=== PATIENT | female | born 1965 | race Caucasian/White ===

== ENCOUNTER → 2019-12-23 13:00 | Outpatient (BNVA) | payer SELFPAY | PROVIDERS: PCP Internal Medicine; Visit Provider Internal Medicine Cardiovascular Disease | DX: R00.2 Palpitations (principal); R07.2 Precordial pain | CPT/HCPCS: 93005; 99202 ==

== ENCOUNTER → 2020-01-05 14:53 | Outpatient (REF) | payer BC, SELFPAY ==
--- NOTE | 2020-01-05 14:58 | CA_ITS ---
Transthoracic Echocardiogram Patient (Last, First, Middle): Machelle Antunez L Gender: Female Date of : 1965 Age: 54 Procedure Date: 01/05/2020 Procedure Type: Transthoracic Echocardiogram Location: OP Height: 162.56 cm Weight: 68.04 kg BSA: 1.73 m2 Heart Rate: bpm BP: 122 / 60 mmHg Dance Artist: Referring MD: Dain Michel MD Symptoms: R00.2 - Palpitations Study Quality: Good ECG Rhythm: Sinus Conclusions: - Normal study Findings Left Ventricle Normal left ventricular size, thickness, and systolic function. The visually estimated ejection fraction is between 60-65%. Diastolic function is normal for age. Right Ventricle Normal right ventricular cavity size and systolic function. Atria Both atria are normal in size. There is no evidence of interatrial shunt. Aortic Valve Normal aortic valve structure and function. There is no aortic valve stenosis. There is no aortic valve regurgitation. Mitral Valve Normal mitral valve structure and function. There is trace mitral valve regurgitation. There is no mitral valve stenosis. Pulmonic Valve The pulmonic valve is likely normal. Tricuspid Valve Normal tricuspid valve structure. There is trace tricuspid valve regurgitation. The right ventricular systolic pressure is normal. The right ventricular systolic pressure is 23 mmHg. Normal right atrial pressure. There is no evidence of pulmonary hypertension. Great Vessels All visible segments of the aorta are normal in size. The pulmonary artery was not well visualized. Venous The inferior vena cava is normal in size. Inferior vena cava flow is normal. Pericardium/Pleural There is no evidence of pericardial effusion. Prior Study Comparison No prior study available for comparison. Measurements 2D Linear Measurements IVSd: 1.00 0.6-0.9/0.6-1.0 cm LVIDd: 4.36 3.9-5.3/4.2-5.9 cm LVIDd Index: 2.52 2.4-3.2/2.2-3.1 cm/m2 LVIDs: 2.47 2.0-3.6 cm LVPWd: 0.91 0.7-1.1 cm Ao Root: 3.10 2.1-3.5 cm LA Diam: 3.30 2.7-3.8/3.0-4.0 cm LAIDs Index: 1.91 1.5-2.3 cm/m2 LV Mass: 169.54 67-162/88-224 g LV Mass Index: 98.00 43-95/49-115 g/m2 LVOT Diam: 2.00 3.0+(-)1.3 cm Mitral Valve MV Pk E: 0.88 MV PK A: 0.59 MV Decel Time: 169.00 E/A: 1.50 E'Lateral: 12.90 E'Medial: 12.70 E/E' Med: 7.00 E/E' Lat: 6.80 PHT: 50.00 MVA PHT: 4.40 Decel Sibley: 5.22 Aortic Valve AoV Pk Robb: 1.58 AoV Mn Robb: 0.99 AoV VTI: 0.36 AoV Pk Grad: 10.00 Aov Mn Grad: 5.00 OLEKSANDR Cont.VTI: 1.97 LVOT LVOT Pk Robb: 1.06 LVOT Mn Robb: 0.61 LVOT VTI: 0.23 LVOT Pk Grad: 4.00 LVOT Mn Grad: 2.00 LVOT Diam: 2.00 LVOT Area: 3.14 Diastolic Function MV Pk E: 0.88 MV Pk A: 0.59 E/A: 1.50 E'Medial: 12.70 E/E' Med: 7.00 E' Laterial: 12.90 E/E' Lat: 6.80 Tricuspid Valve TR Pk Robb: 2.25 TR Pk Grad: 20.00 RA Press: 3.00 RVSP: 23.00 Great Vessels Aorta Ao Root-2D: 3.10 2.0-3.7 cm Pulmonary Valve PV Pk Robb: 0.88 Peak PV Grad: 3.00 Updated in Other Vendor System with Status of Final Milton Zarate MD electronically signed on 01/06/2020 10:13:06 AM with status of Final
== END ==
LOC: HO.CARD 14:53
PROVIDERS: Visit Provider Internal Medicine Cardiovascular Disease
DX: R00.2 Palpitations (principal)
CPT/HCPCS: 93306

== ENCOUNTER → 2020-03-21 14:40 | Outpatient (BNVA) | payer BC, SELFPAY | PROVIDERS: PCP Internal Medicine; Visit Provider Internal Medicine Cardiovascular Disease ==

== ENCOUNTER 2020-11-14 10:23 | Outpatient (REF) | payer BC, SELFPAY ==
[2020-11-14 10:28] LABS: MANUAL DIFF FLAG NO
[2020-11-14 11:52] LABS: Basophils Absolute Auto 0.1 X10*3/uL (0.0-0.2); Eosinophils Absolute Auto 0.1 X10*3/uL (0.0-0.4); Eosinophils Percent Auto 1.9 % (0-4); Hematocrit 42.1 % (37-47); Hemoglobin 13.7 g/dl (12.0-16.0); Imm Gran Abs Auto 0.02 X10*3/uL (0.00-0.03); Imm Gran Pct Auto 0.4 % (0.0-0.4); Lymphocytes Absolute Auto 2.1 X10*3/uL (1.2-4.9); Lymphocytes Percent Auto 40.3 % (20-40); Mean Corpuscular HGB Conc 32.5 g/dl (31.0-35.0); Mean Platelet Volume 11.3 fL (9.4-12.3); Monocytes Absolute Auto 0.4 X10*3/uL (0.1-1.2); Neutrophils Absolute Auto 2.5 X10*3/uL (2.0-8.3); Neutrophils Percent Auto 49.4 % (45-73); Platelet Count 214 X10*3/uL (160-400); Red Blood Count 4.73 X10*6/uL (4.20-5.50); Red Cell Distribution Width 12.5 % (11.0-16.0); White Blood Count 5.1 X10*3/uL (4.8-10.8)
[2020-11-14 12:09] LABS: Appearance Urine HAZY; Color Urine YELLOW; Glucose Urine UA NEG (NEG); Leukocyte Esterase Urine NEG (NEG); Nitrite Urine NEG (NEG); Specific Gravity - Urine >= 1.030 (1.005-1.025); Urine Blood NEG (NEG); Urine Ketones NEG (NEG); Urine Protein NEG (NEG-TRACE)
[2020-11-14 12:47] LABS: Alanine Aminotransferase 33 U/L (0-31); Albumin Level 4.5 g/dL (3.5-5.0); Alkaline Phosphatase 86 U/L (39-117); Anion Gap 14 (12-20); Aspartate Amino Transferase 25 U/L (5-31); Bilirubin Total 0.7 mg/dL (0.0-1.0); Blood Urea Nitrogen 13 mg/dL (9-16); Calcium 9.3 mg/dL (8.4-10.2); Carbon Dioxide 24 mmol/L (22-29); Chloride 109 mmol/L (96-108); Cholesterol 234 mg/dL; Estimated Glomerular Filt Rate > 60; Glucose Fasting 95 mg/dL (60-99); HDL Cholesterol 76 mg/dL; LDL Cholesterol Calculated 132 mg/dl; Sodium 143 mmol/L (135-145); Triglycerides 133 mg/dL
== END 2020-11-14 10:24 | disposition home or self-care (01) ==
LOC: HO.LNP 10:23
PROVIDERS: Visit Provider Internal Medicine
DX: Z00.00 Encounter for general adult medical examination without abnormal findings (principal); D64.9 Anemia, unspecified; R73.01 Impaired fasting glucose
CPT/HCPCS: 80053; 80061; 81003; 85025

== ENCOUNTER 2021-11-16 13:14 | Outpatient (REF) | payer BC, SELFPAY ==
[2021-11-16 13:17] LABS: MANUAL DIFF FLAG NO
[2021-11-16 13:33] LABS: Basophils Percent Auto 0.8 % (0-2); Eosinophils Absolute Auto 0.1 X10*3/uL (0.0-0.4); Eosinophils Percent Auto 1.6 % (0-4); Hematocrit 41.1 % (37.0-47.0); Hemoglobin 13.3 g/dl (12.0-16.0); Lymphocytes Percent Auto 38.7 % (20-40); Mean Corpuscular HGB Conc 32.4 g/dl (31.0-35.0); Mean Corpuscular Hemoglobin 28.3 pg (27.0-33.0); Mean Corpuscular Volume 87.4 fL (80.0-98.0); Mean Platelet Volume 11.2 fL (9.4-12.3); Monocytes Absolute Auto 0.4 X10*3/uL (0.1-1.2); Neutrophils Absolute Auto 2.7 x10*3/uL (2.0-8.3); Neutrophils Percent Auto 51.9 % (45-73); Platelet Count 214 X10*3/uL (160-400); Red Cell Distribution Width 12.7 % (11.0-16.0); White Blood Count 5.1 X10*3/uL (4.8-10.8)
[2021-11-16 13:41] LABS: Alanine Aminotransferase 24 U/L (0-31); Albumin Level 4.5 g/dL (3.5-5.0); Alkaline Phosphatase 91 U/L (39-117); Anion Gap 15 (12-20); Appearance Urine Clear; Aspartate Amino Transferase 20 U/L (5-31); Bilirubin Total 0.7 mg/dL (0.0-1.0); Blood Urea Nitrogen 15 mg/dL (9-16); Calcium 9.2 mg/dL (8.4-10.2); Carbon Dioxide 24 mmol/L (22-29); Chloride 107 mmol/L (96-108); Cholesterol 194 mg/dL; Color Urine Yellow; Estimated Glomerular Filt Rate > 60; Glucose Fasting 95 mg/dL (60-99); Glucose Urine UA Negative (Negative); HDL Cholesterol 65 mg/dL; LDL Cholesterol Calculated 107 mg/dl; Leukocyte Esterase Urine Negative (Negative); Nitrite Urine Negative (Negative); PH 5.5 (5.0-9.0); Potassium 4.2 mmol/L (3.3-5.1); Sodium 142 mmol/L (135-145); Total Protein 7.2 g/dL (6.5-8.0); Triglycerides 110 mg/dL; Urine Blood Negative (Negative); Urine Ketones Negative (Negative); Urine Protein Negative (Neg-Trace)
[2021-11-16 13:43] LABS: Estimated Average Glucose 105 mg/dL; Hemoglobin A1c % 5.3 %
== END 2021-11-16 13:15 | disposition home or self-care (01) ==
LOC: HO.LNP 13:14
PROVIDERS: Visit Provider Internal Medicine
DX: Z00.00 Encounter for general adult medical examination without abnormal findings (principal); D64.9 Anemia, unspecified; R73.01 Impaired fasting glucose
CPT/HCPCS: 80053; 80061; 81003; 83036; 85025

== ENCOUNTER 2022-02-06 15:53 | Outpatient (REF) | payer BC, SELFPAY ==
[2022-02-06 16:07] LABS: Appearance Urine Clear; Color Urine Yellow; Glucose Urine UA Negative (Negative); Leukocyte Esterase Urine Trace (Negative); Nitrite Urine Negative (Negative); PH 6.5 (5.0-9.0); Specific Gravity - Urine 1.025 (1.005-1.025); UMIC TRIGGER UA YES; Urine Blood Negative (Negative); Urine Ketones Negative (Negative); Urine Protein Negative (Neg-Trace)
[2022-02-06 16:12] LABS: Bacteria Urine 1+ (None Seen); Hyaline Casts Urine 0-2 /LPF (0-2); RBC Urine 0-2 /HPF (0-2)
== END 2022-02-06 15:54 | disposition home or self-care (01) ==
LOC: HO.LNP 15:53
PROVIDERS: Visit Provider Internal Medicine
DX: N30.00 Acute cystitis without hematuria (principal)
CPT/HCPCS: 81001; 87086; 87088; 87186

== ENCOUNTER 2023-01-01 07:31 | Outpatient (REF) | payer BC, SELFPAY ==
[2023-01-01 07:49] LABS: MANUAL DIFF FLAG NO
[2023-01-01 08:26] LABS: Basophils Percent Auto 0.6 % (0-2); Eosinophils Absolute Auto 0.1 X10*3/uL (0.0-0.4); Eosinophils Percent Auto 2.1 % (0-4); Hematocrit 41.6 % (37.0-47.0); Hemoglobin 13.4 g/dl (12.0-16.0); Imm Gran Abs Auto 0.01 X10*3/uL (0.00-0.03); Imm Gran Pct Auto 0.2 % (0.0-0.4); Lymphocytes Absolute Auto 1.7 X10*3/uL (1.2-4.9); Lymphocytes Percent Auto 35.7 % (20-40); Mean Corpuscular HGB Conc 32.2 g/dl (31.0-35.0); Mean Corpuscular Hemoglobin 28.1 pg (27.0-33.0); Mean Corpuscular Volume 87.2 fL (80.0-98.0); Mean Platelet Volume 10.7 fL (9.4-12.3); Monocytes Absolute Auto 0.3 X10*3/uL (0.1-1.2); Neutrophils Absolute Auto 2.6 x10*3/uL (2.0-8.3); Neutrophils Percent Auto 54.4 % (45-73); Platelet Count 206 X10*3/uL (160-400); Red Blood Count 4.77 X10*6/uL (4.20-5.50); Red Cell Distribution Width 12.3 % (11.0-16.0); White Blood Count 4.7 X10*3/uL (4.8-10.8)
[2023-01-01 08:34] LABS: Estimated Average Glucose 103 mg/dL; Hemoglobin A1c % 5.2 % (<6.0)
[2023-01-01 08:51] LABS: Alanine Aminotransferase 26 U/L (0-31); Albumin Level 4.4 g/dL (3.5-5.0); Alkaline Phosphatase 82 U/L (39-117); Anion Gap 12 (12-20); Aspartate Amino Transferase 22 U/L (5-31); Bilirubin Total 0.6 mg/dL (0.0-1.0); Blood Urea Nitrogen 15 mg/dL (9-16); Calcium 9.1 mg/dL (8.4-10.2); Carbon Dioxide 27 mmol/L (22-29); Chloride 107 mmol/L (96-108); Cholesterol 196 mg/dL (<200); Estimated Glomerular Filt Rate > 60; Glucose Fasting 91 mg/dL (60-99); HDL Cholesterol 71 mg/dL (>40); LDL Cholesterol Calculated 106 mg/dL (<100); Sodium 142 mmol/L (135-145); Total Protein 7.3 g/dL (6.5-8.0); Triglycerides 96 mg/dL (<150)
[2023-01-01 09:39] LABS: Appearance Urine Clear; Color Urine Yellow; Glucose Urine UA Negative (Negative); Leukocyte Esterase Urine Negative (Negative); Nitrite Urine Negative (Negative); PH 5.5 (5.0-9.0); Urine Blood Negative (Negative); Urine Ketones Negative (Negative); Urine Protein Negative (Neg-Trace)
[2023-01-01 09:43] LABS: Bacteria Urine None Seen (None Seen); Hyaline Casts Urine 0-2 /LPF (0-2); RBC Urine 0-2 /HPF (0-2); WBC Urine 0-5 /HPF (0-5)
== END 2023-01-01 07:32 | disposition home or self-care (01) ==
LOC: HO.LAB 07:31
PROVIDERS: PCP Internal Medicine; Visit Provider Internal Medicine
DX: Z00.00 Encounter for general adult medical examination without abnormal findings (principal); D64.9 Anemia, unspecified; R73.01 Impaired fasting glucose
CPT/HCPCS: 36415; 80053; 80061; 81001; 83036; 85025

== ENCOUNTER 2023-02-04 10:26 | Outpatient (REF) | payer BC, SELFPAY ==
--- NOTE | ~2023-02-04 | FL_ITS ---
EXAMINATION: XR FLUOROSCOPY UPPER GI WITH AIR CLINICAL INFORMATION: Reflux COMPARISON: None TECHNIQUE: Fluoroscopic air contrast upper GI examination was performed utilizing standard techniques with thin and thick barium and effervescent granules. Numerous spot images were obtained. FINDINGS: Dual and single contrast images of the esophagus demonstrate normal caliber, contour, and mucosal pattern. No evidence of stricture, mass, or ulcerations identified. Nonpropulsive tertiary contractions are noted in the mid and distal esophagus. No evidence of hiatus hernia identified. No significant gastroesophageal reflux was seen during the course of the examination and on reflux views. Dual contrast and single contrast images of the stomach demonstrated normal contour and mucosal pattern without evidence of mass, ulceration, or other abnormality. Contrast freely passed into the gastric antrum and duodenal bulb without delay. Single and air-contrast images of the duodenal bulb demonstrate no abnormality. The duodenal sweep has a normal appearance, course, and mucosal fold appearance. The imaged proximal jejunum has a normal fold pattern and caliber. FLUOROSCOPY TIME: 3 minutes 23 seconds Number of Spot Images: 8 Number of Cine: 8 DOSE AREA PRODUCT: 2195 uGy-m2 (microgray-meter squared) FL/FL upper GI w air IMPRESSION: 1. Nonpropulsive tertiary contractions seen in the mid and distal esophagus consistent with mild esophageal dysmotility. 2. No significant gastroesophageal reflux was seen during this examination. This procedure was performed by Cuauhtemoc Wing PA-C, and supervised by Dr. Drummond
== END 2023-02-04 10:27 | disposition home or self-care (01) ==
LOC: HO.XRAY 10:26
PROVIDERS: PCP Internal Medicine; Visit Provider Internal Medicine
DX: K21.9 Gastro-esophageal reflux disease without esophagitis (principal)
CPT/HCPCS: 74246

== ENCOUNTER → 2023-02-04 10:28 | Outpatient (BNV) | payer BC, SELFPAY | PROVIDERS: PCP Internal Medicine; Visit Provider Radiology Diagnostic Radiology | DX: K21.9 Gastro-esophageal reflux disease without esophagitis (principal) | CPT/HCPCS: 74246 ==

== ENCOUNTER 2024-01-21 07:25 | Outpatient (REF) | payer BC, SELFPAY ==
[2024-01-21 07:38] LABS: MANUAL DIFF FLAG NO
[2024-01-21 08:08] LABS: Appearance Urine Cloudy; Color Urine Yellow; Glucose Urine UA Negative (Negative); Leukocyte Esterase Urine Trace (Negative); Nitrite Urine Negative (Negative); PH 5.5 (5.0-9.0); Specific Gravity - Urine 1.025 (1.005-1.025); UMIC TRIGGER UACC YES; Urine Blood Negative (Negative); Urine Ketones Negative (Negative); Urine Protein Negative (Neg-Trace)
[2024-01-21 08:13] LABS: Bacteria Urine Trace (None Seen); Hyaline Casts Urine 0-2 /LPF (0-2); RBC Urine 0-2 /HPF (0-2); WBC Urine 0-5 /HPF (0-5)
[2024-01-21 08:18] LABS: Basophils Absolute Auto 0.1 X10*3/uL (0.0-0.2); Eosinophils Absolute Auto 0.1 X10*3/uL (0.0-0.4); Eosinophils Percent Auto 1.5 % (0-4); Hematocrit 41.3 % (37.0-47.0); Hemoglobin 13.4 g/dl (12.0-16.0); Imm Gran Abs Auto 0.02 X10*3/uL (0.00-0.03); Imm Gran Pct Auto 0.3 % (0.0-0.4); Lymphocytes Absolute Auto 2.2 X10*3/uL (1.2-4.9); Lymphocytes Percent Auto 37.5 % (20-40); Mean Corpuscular HGB Conc 32.4 g/dl (31.0-35.0); Mean Corpuscular Hemoglobin 28.3 pg (27.0-33.0); Mean Corpuscular Volume 87.3 fL (80.0-98.0); Mean Platelet Volume 10.9 fL (9.4-12.3); Monocytes Absolute Auto 0.4 X10*3/uL (0.1-1.2); Monocytes Percent Auto 6.4 % (2-11); Neutrophils Absolute Auto 3.2 x10*3/uL (2.0-8.3); Neutrophils Percent Auto 53.3 % (45-73); Platelet Count 221 X10*3/uL (160-400); Red Blood Count 4.73 X10*6/uL (4.20-5.50); Red Cell Distribution Width 12.4 % (11.0-16.0)
[2024-01-21 08:30] LABS: Alanine Aminotransferase 29 U/L (0-31); Albumin Level 4.4 g/dL (3.5-5.0); Alkaline Phosphatase 86 U/L (39-117); Anion Gap 14 (12-20); Aspartate Amino Transferase 27 U/L (5-31); Bilirubin Total 0.4 mg/dL (0.0-1.0); Blood Urea Nitrogen 14 mg/dL (9-16); Carbon Dioxide 26 mmol/L (22-29); Chloride 104 mmol/L (96-108); Cholesterol 203 mg/dL (<200); Estimated Glomerular Filt Rate > 60; Glucose Fasting 94 mg/dL (60-99); HDL Cholesterol 66 mg/dL (>40); LDL Cholesterol Calculated 118 mg/dL (<100); Potassium 3.8 mmol/L (3.3-5.1); Sodium 140 mmol/L (135-145); Total Protein 7.2 g/dL (6.5-8.0); Triglycerides 95 mg/dL (<150)
[2024-01-21 08:33] LABS: Estimated Average Glucose 108 mg/dL; Hemoglobin A1C 124.4219 umol/L; Hemoglobin A1c % 5.4 % (<6.0); Total Hemoglobin (HGBA1C) 3471.3522 umol/L
== END 2024-01-21 07:26 | disposition home or self-care (01) ==
LOC: HO.LAB 07:25
PROVIDERS: PCP Internal Medicine; Visit Provider Internal Medicine
DX: Z00.00 Encounter for general adult medical examination without abnormal findings (principal); D64.9 Anemia, unspecified; R73.01 Impaired fasting glucose
CPT/HCPCS: 36415; 80053; 80061; 81001; 83036; 85025

== ENCOUNTER 2025-01-18 11:19 | Outpatient (REF) | payer BC, SELFPAY ==
[2025-01-18 11:24] LABS: MANUAL DIFF FLAG NO
[2025-01-18 11:43] LABS: Hematocrit 42.2 % (37.0-47.0); Hemoglobin 13.3 g/dl (12.0-16.0); Imm Gran Abs Auto 0.03 X10*3/uL (0.00-0.03); Imm Gran Pct Auto 0.4 % (0.0-0.4); Lymphocytes Absolute Auto 2.3 X10*3/uL (1.2-4.9); Mean Corpuscular HGB Conc 31.5 g/dl (31.0-35.0); Mean Corpuscular Hemoglobin 28.5 pg (27.0-33.0); Mean Corpuscular Volume 90.4 fL (80.0-98.0); NRBC Abs Auto 0.000 X10*3/uL (0.0-0.012); NRBC Pct Auto 0.0 /100WBC (0.0-0.2); Platelet Count 237 X10*3/uL (160-400); Red Blood Count 4.67 X10*6/uL (4.20-5.50); White Blood Count 7.1 X10*3/uL (4.8-10.8)
[2025-01-18 11:57] LABS: Appearance Urine Hazy; Glucose Urine UA Negative (Negative); PH 6.0 (5.0-9.0); Specific Gravity - Urine >= 1.030 (1.005-1.025)
[2025-01-18 12:30] LABS: Other Crystals Urine Present
--- OUTSIDE RECORDS SUMMARY | 2025-01-18 14:52 | XMS_ITS | Clinical Summary ---
Author Organization [facility] Address [address] [place] [address] Phone Care Team Providers Care Reaming Press Operator Name Role Phone Galilea Ellis Ranjith SHOW DESIGN SUPERVISOR Unavailable [phone] Mich العراقي MD Primary Care Provider Allergies Active Allergy Reactions Criticality Noted Date Comments Penicillins Rash Low 11/10/2018 Medications Medication-Free Text multivitamin Active fluticasone propionate (FLONASE) 50 mcg/actuation nasal spray 1 spray by Nasal route as needed (allergy season). Active Family History Medical History Relation Comments Pacemaker Brother 1 No Known Problems Brother 2 No Known Problems Brother 3 No Known Problems Daughter No Known Problems Father Hypertension Mother No Known Problems Son 1 No Known Problems Son 2 No Known Problems Son 3 Breast cancer Neg Hx Relation Status Comments Brother 1 Alive Brother 2 Alive Brother 3 Alive Daughter Alive Father Alive Mother Alive Son 1 Alive Son 2 Alive Son 3 Alive Social History Tobacco Use Types Packs/Day Years Used Date Smoking Tobacco: Never Smokeless Tobacco: Never Alcohol Use Standard Drinks/Week Comments No 0 (1 standard drink = 0.6 oz pur e alcohol) Education Answer Date Recorded Are you interested in more education? Not on robbie e 06/22/2022 Are you concerned about learning? Not on file 06/22/2022 No 06/22/2022 No 06/22/2022 Digital Access Answer Date Recorded No 07/21/2022 No 07/21/2022 Reliable internet access at home? Not on file 07/21/2022 Device with a working camera? Not on file Comments No Sex and Gender Information Value Date Recorded Sex Assigned at Female 08/04/2022 5:05 PM EDT Legal Sex Female 9:37 PM EDT Gender Identity Female 08/04/2022 5:05 PM EDT Sexual Orientation Straight 08/04/2022 5: 05 PM EDT Occupation Industry Job Start Date Job End Date [employer] Not on file Not on file Not on file Last Filed Vital Signs Vital Sign Reading Time Taken Comments Blood Pressure 110/80 02/13/2024 8:04 AM EST Pulse - - Temperature - - Respiratory Rate - - Oxygen Saturation - - Inhaled Oxygen Concentration - - Weight 75.8 kg (167 lb) 02/13/2024 8:04 AM EST Height 161 cm (5' 3.4 ) 02/13/2024 8:04 AM EST Body Mass Index 29.21 02/13/2024 8:04 AM EST Plan of Treatment Health Maintenance Due Date Last Done Comments LIPID PANEL 1965 DEPRESSION SCREENING 1979 HEPATITIS C SCREENING 12/25/1985 HIV ONE-TIME SCREENING (18-65 YEARS) 12/25/1985 SCREENING FOR DIABETES 12/25/2002 COLOGUARD 12/25/2012 COLONOSCOPY 12/25/2012 COLORECTAL CANCER SCREENING 12/25/2012 FIT TEST 12/25/2012 FOBT 12/25/2012 SIGMOIDOSCOPY 12/25/2012 VIRTUAL COLONOSCOPY 12/25/2012 PNEUMOCOCCAL VACCINES (50+ years) (1 of 1 - PCV) 12/25/2017 ZOSTER VACCINES (1 of 2) 12/25/2017 INFLUENZA VACCINE (#1) 2024 , 01/15/2023, 11/10/2021, Additional history exists COVID-19 VACCINE ( season) 2024 03/07/2021, 06/10/2020, 05/19/2020 MAMMOGRAM 03/23/2026 03/23/2024, 0907/2022, 10/23/2021, Additional history exists PAP SMEAR 11/09/2027 11/08/2022, 09/26, 10/21/2017, Additional history exists Adult Td,Tdap Booster 12/31/2028 12/31/2018 RSV VACCINE (1 - 1-dose 75+ series) 12/25/2042 SMOKING STATUS SCREENING (Once After 26 Yrs) Completed 02/13/2024 HEPATITIS A VACCINES Aged Out No long er eligible based on patient's age to complete this topic HIB VACCINES Aged Out No longer eligi ble based on patient's age to complete this topic MENINGOCOCCAL VACCINES (ACWY) Aged Out No longer eligible based on patient's age to complete this topic MENINGOCOCCAL VACCINES (B) Aged Out N o longer eligible based on patient's age to complete this topic Medical Devices Not on file Procedures Procedure Name Priority Date/Time Associated Diagnosis Comments BI MAMMOGRAM SCREENING WITH TOMOSYNTHESIS WITH CAD (BILATERAL) Routine 03/23/2024 2:55 PM EST Breast screening PAP TEST Routine 11/08/2022 12:00 AM EDT from Last 3 Months or Most Recently Relevant to Health Maintenance Results * BI MAMMOGRAM SCREENING WITH TOMOSYNTHESIS WITH CAD (BILATERAL) (03/23/2024 2:55 PM EST) Anatomical Region Laterality Modality Breast Left, Breast Right, Breast Bilateral Bila teral Mammography 03/24/2024 4:27 PM EST Impressions 03/24/2024 4:28 PM EST No mammographic evidence of malignancy in either breast. Annual screening mammography is recommended. BI-RADS 1 NEGATIVE The patient will be notified of the results and recommendations. Narrative 03/24/2024 4:28 PM EST BI MAMMOGRAM SCREENING WITH TOMOSYNTHESIS WITH CAD (BILATERAL) Additional patient information: Screening. COMPARISON: Comparison is made with relevant prior imaging. Breast composition: There are scattered areas of fibroglandular density. FINDINGS: No abnormal masses, suspicious calcifications, or other significant findings are identified mammographically in either breast. Procedure Note Monica Majano MD - 03/24/2024 BI MAMMOGRAM SCREENING WITH TOMOSYNTHESIS WITH CAD (BILATERAL) Additional patient information: Screening. COMPARISON: Comparison is made with relevant prior imaging. Breast composition: There are scattered areas of fibroglandular density. FINDINGS: No abnormal masses, suspicious calcifications, or other significantfindings are identified mammographically in either breast. IMPRESSION: No mammographic evidence of malignancy in either breast. Annual screening mammography is recommended. BI-RADS 1 NEGATIVE The patient will be notified of the results and recommendations. us Mich العراقي MD IMG MG EXAMS Final R esult * Pap Test (11/08/2022 12:00 AM EDT) 11/08/2022 11/09/2022 8:4 3 AM EDT Narrative SEE NARRATIVE - 11/14/2022 4:41 [place] [address] [address] Boss: Karen Morgan MD LABORER POUL[employer]ATCH[employer] Cytology Report FINAL DIAGNOSIS A. PAP SMEAR (SUREPATH) CE: SPECIMEN ADEQUACY: Satisfactory for evaluation; transformation zone present. INTERPRETATION: NEGATIVE FOR INTRAEPITHELIAL LESION OR MALIGNANCY. Electronically Signed Out By: AILIN Fabian(ASCP) AILIN Connell(ASCP) The Pap test is a screening test primarily for squamous cancers and precursors and has associated false-negative and false-positive results. New technologies such as liquid-based preparations may decrease but will not eliminate all false-negative results. Regular sampling and follow-up of unexplained clinical signs and symptoms are recommended to minimize false negative results. PROCEDURES/ADDENDA HPV Testing (Requested) Ordered Date: 11/09/2022 A. PAP SMEAR (SUREPATH) CE: Human Papilloma Virus Test NEGATIVE for high-risk Human Papilloma Virus types 16, 18, 45 and the Other high risk probe set (Includes 31, 33, 35, 39, 51, 52, 56, 58, 59, 66, 68) Note: Testing performed by [facility] HR-HPV analysis. Clinical correlation is advised. This HPV test was performed at [facility] [place], [address] [place] [address]. This test has been FDA approved for SurePath cervical cytology specimens. The accuracy and precision of this test for all other specimen sources has been verified in the Cytopathology Laboratory of the [facility] [place] and has not been cleared or approved by the U.S. Food and Drug Administration. Clinical correlation is advised. CLINICAL HISTORY Date of Last Menstrual Period: Not Provided Menstrual History: Post Menopausal Other Clinical Conditions: Screening Pap SPECIMEN SOURCE A: PAP SMEAR (SUREPATH) CE Patient Name: NEWBERRY MAXINE CUCA : 1965 (Age: 56) Sex: F Institution: [facility] Location: [facility] Date of Collection: 11/08/2022 Date of Reported: 11/14/2022 16:41 Results to: Holly ALLEN Holly Villa CNM CYTOLOGY ORDERABLES Final Result SEE NARRATIVE from Last 3 Months or Most Recently Relevant to Health Maintenance Insurance [place] OUT [facility] PPO [facility] OUT OF STATE PPO OUT [facility] [place] [address] [place] [address] [place] [facility] [place] [address] [place] [address] [place] [facility] [place] [address] [address] PPO [employer] OUT OF [place] [place] [address] CROSS OUT OF [facility] PPO [place] [place] OUT OF STATE PPO Care Teams Reaming Press Operator Relationship Specialty Start Date End Date Mich العراقي MD [address] [place] [address] [place] [address] PCP - General 02/28/17 Galilea Ellis NP [address] [place] [id number] [email or web address] Historical LMR Provider 12/15/16 Additional Source Comments The information contained in this document represents components of the legal health record. It is not the complete legal health record.[facility]
--- OUTSIDE RECORDS SUMMARY | 2025-01-18 14:52 | XMS_ITS | Encounter Summary ---
Author Organization [facility] Address [address] [place] [address] Phone Care Team Providers Care Still Runner Name Role Phone Ward Álvarez MD Unavailable Galilea Ellis CARTOGRAPHIC DESIGNER Unavailable [phone] Mich العراقي MD Unavailable [phone] Mich العراقي MD Primary Care Provider Encounter Details Date Type Department Care Team (Late st Contact Info) Description 04/04/2017 Ancillary Orders [facility] [address] [place] [address] [place] [address] Galilea Ellis, CARTOGRAPHIC DESIGNER [address] [place] [address] [email or web address] Breast screening Social History Tobacco Use Types Packs/Day Years Used Date Smoking Tobacco: Never Assessed Comments Unknown Sex and Gender Information Value Date Recorded Sex Assigned at Female 08/04/2022 5:05 PM EDT Legal Sex Female 9:37 PM EDT Gender Identity Female 08/04/2022 5:05 PM EDT Sexual Orientation Straight 08/04/2022 5: 05 PM EDT documented as of this encounter Plan of Treatment Not on file documented as of this encounter Results * BI MAMMOGRAM SCREENING WITH TOMOSYNTHESIS WITH CAD (BILATERAL) (05/03/2017 3:11 PM EST) Anatomical Region Laterality Modality Breast Left, Breast Right, Breast Bilateral Bila teral Mammography 05/04/2017 7:00 PM EST Impressions 05/04/2017 7:04 PM EST No findings suspicious for malignancy are identified. In the absence of a worrisome palpable abnormality, annual screening mammography is recommended. BI-RADS CATEGORY: 2 - Benign finding. DENSITY: The breast tissue is heterogeneously dense, an appearance which lowers the sensitivity of mammography. POS [id number] Narrative 05/04/2017 7:04 PM EST COMPARISON: 02/06/2011 through 03/05/2016 Bilateral 3-D tomosynthesis with 2-D reconstructions in the CC and MLO projection. Computer-aided detection system also utilized. No new mass, asymmetry, architectural distortion or suspicious calcifications have become apparent on either side. Scattered bilateral punctate calcifications unchanged Procedure Note Rudolph Mena MD - 05/04/2017 COMPARISON: 02/06/2011 through 03/05/2016 Bilateral 3-D tomosynthesis with 2-D reconstructions in the CC and MLOprojection. Computer-aided detection system also utilized. No new mass, asymmetry, architectural distortion or suspiciouscalcifications have become apparent on either side. Scattered bilateral punctate calcifications unchanged IMPRESSION: No findings suspicious for malignancy are identified. In the absence of aworrisome palpable abnormality, annual screening mammography isrecommended. BI-RADS CATEGORY: 2 - Benign finding. DENSITY: The breast tissue is heterogeneously dense, an appearance whichlowers the sensitivity of mammography. POS CDHMAM2 Galilea Ellis CARTOGRAPHIC DESIGNER IMG MG EXAMS Final Result documented in this encounter Visit Diagnoses Diagnosis Breast screening Breast screening, unspecified Breast screening Breast screening, unspecified documented in this encounter Care Teams Still Runner Relationship Specialty Start Date End Date Mich العراقي MD [address] [place] [address] [place] [address] PCP - General 02/28/17 Ward Álvarez MD [address] [place] [address] [address] [place] [address] [email or web address] Historical LMR Provider 12/15/16 03/04/21 Galilea Ellis NP [address] [place] [id number] [email or web address] Historical LMR Provider 12/15/16 Mich العراقي MD [address] [place] [address] [place] [address] Historical LMR Provider 12/15/16 2 documented as of this encounter Additional Source Comments The information contained in this document represents components of the legal health record. It is not the complete legal health record.[facility]
--- OUTSIDE RECORDS SUMMARY | 2025-01-18 14:52 | XMS_ITS | Encounter Summary ---
Author Organization [facility] Address [address] [place] [address] Phone Care Team Providers Care Board Layer Name Role Phone RhondaGalilea [email or web address] Ranjith RELIEF SALESPERSON Unavailable [phone] Mich العراقي MD Primary Care Provider Encounter Details Date Type Department Care Team (Late st Contact Info) Description 11/06/2023 Procedure Pass [facility], [facility] [address] [place] [address] Social History Tobacco Use Types Packs/Day Years [...] file Not on file Not on file documented as of this encounter Plan of Treatment Not on file documented as of this encounter Visit Diagnoses Not on filedocumented in this encounter Care Teams Board Layer Relationship Specialty Start Date End Date Mich العراقي MD [address] [place] [address] [place] [address] PCP - General 02/28/17 Galilea Ellis NP [address] [place] [id number] [email or web address] Historical LMR Provider 12/15/16 documented as of this encounter Additional Source Comments The information contained in this document represents components of the legal health record. It is not the complete legal health record.[facility]
--- OUTSIDE RECORDS SUMMARY | 2025-01-18 14:52 | XMS_ITS | Encounter Summary ---
Author Organization [facility] Address [address] [place] [address] Phone Care Team Providers Care Hospitalist Nocturnist Physician Name Role Phone Ward Álvarez MD Unavailable Galilea Ellis TURBINE SUBASSEMBLER Unavailable [phone] Mich العراقي MD Unavailable [phone] Mich العراقي MD Primary Care Provider Encounter Details Date Type Department Care Team (Late st Contact Info) Description 08/18/2020 Ancillary Orders Thai [facility] [address] [place] [address] [place] [address] Galilea Ellis, TURBINE SUBASSEMBLER [address] [place] [address] [email or web address] Breast screening Social History Tobacco Use Types Packs/Day Years Used Date Smoking Tobacco: Never Smokeless Tobacco: Never Alcohol Use Standard Drinks/Week Comments No 0 (1 standard drink = 0.6 oz pur e alcohol) Comments No Sex and Gender Information Value [...] MAMMOGRAM SCREENING WITH TOMOSYNTHESIS WITH CAD (BILATERAL) (10/21/2020 8:45 AM EDT) Anatomical Region Laterality Modality Breast Left, Breast Right, Breast Bilateral Bila teral Mammography 10/21/2020 10:4 2 AM EDT Impressions 10/21/2020 10:46 AM EDT BILATERAL BREASTS: Benign, no evidence of malignancy. Normal interval follow-up is recommended in 12 months. Bi-RADS: BI-RADS CATEGORY: 2 - Benign finding. DENSITY: There are scattered fibroglandular densities. Narrative 10/21/2020 10:46 AM EDT STUDY: Bilateral screening mammography with tomosynthesis and CAD TECHNIQUE: Bilateral full-field digital screening mammography is obtained and read in conjunction with computer-aided detection. Tomosynthesis as well as 2-D C view imaging were obtained. COMPARISON: Comparison made to multiple prior, most recent October 21, 2019, and most remote March 01, 2014. BREAST COMPOSITION: There are scattered areas of fibroglandular density RIGHT BREAST: No significant masses, suspicious calcifications or other abnormalities are seen. LEFT BREAST: History of excisional biopsy. No significant masses, suspicious calcifications or other abnormalities are seen. Procedure Note Brittany Conner MD - 10/21/2020 STUDY: Bilateral screening mammography with tomosynthesis and CAD TECHNIQUE: Bilateral full-field digital screening mammography is obtainedand read in conjunction with computer-aided detection. Tomosynthesis aswell as 2-D C view imaging were obtained. COMPARISON: Comparison made to multiple prior, most recent September, and most remote March 01, 2014. BREAST COMPOSITION: There are scattered areas of fibroglandulardensity RIGHT BREAST: No significant masses, suspicious calcifications or otherabnormalities are seen. LEFT BREAST: History of excisional biopsy. No significant masses,suspicious calcifications or other abnormalities are seen. IMPRESSION: BILATERAL BREASTS: Benign, no evidence of malignancy. Normal intervalfollow-up is recommended in 12 months. Bi-RADS: BI-RADS CATEGORY: 2 - Benign finding. DENSITY: There are scattered fibroglandular densities. Galilea Ellis TURBINE SUBASSEMBLER IMG MG EXAMS Final Result documented in this encounter Visit Diagnoses Diagnosis Breast screening Breast screening, unspecified Breast screening Breast screening, unspecified documented in this encounter Care Teams Hospitalist Nocturnist Physician Relationship Specialty Start Date End Date Mich العراقي MD [address] [place] [address] Dr MARI [address] [place] [address] PCP - General 02/28/17 Ward Álvarez MD [address] [facility] [address] [place] [address] [email or web address] Historical LMR Provider 12/15/16 03/04/21 Galilea Ellis NP [address] [place] [id number] [email or web address] Historical LMR Provider 12/15/16 Mich العراقي MD [address] [place] [address] Dr [address]I [address] [place] [address] Historical LMR Provider 12/15/16 2 documented as of this encounter Additional Source Comments The information contained in this document represents components of the legal health record. It is not the complete legal health record.[facility]
--- OUTSIDE RECORDS SUMMARY | 2025-01-18 14:52 | XMS_ITS | Encounter Summary ---
Author Organization [facility] Address [address] [facility] [address] [place] [address] Phone Care Team Providers Care Cutter Wet Machine Name Role Phone Ward Álvarez MD Unavailable Galilea Ellis ASSEMBLY SUPERVISOR Unavailable [phone] Mich العراقي MD Unavailable [phone] Mich العراقي MD Primary Care Provider Encounter Details Date Type Department Care Team (Late st Contact Info) Description 08/18/2020 Procedure Pass [address] [id number] Social History Tobacco Use Types Packs/Day Years [...] on filedocumented in this encounter Care Teams Cutter Wet Machine Relationship Specialty Start Date End Date Mich العراقي MD [address] [place] [address] [place] [address] PCP - General 02/28/17 Ward Álvarez MD [address] [place] [address] [address] [place] [address] [email or web address] Historical LMR Provider 12/15/16 03/04/21 Galilea Ellis NP [address] [place] [phone] [email or web address] Historical LMR Provider 12/15/16 Mich العراقي MD [address] [place] [address] [place] [address] Historical LMR Provider 12/15/16 2 documented as of this encounter Additional Source Comments The information contained in this document represents components of the legal health record. It is not the complete legal health record.[facility]
--- OUTSIDE RECORDS SUMMARY | 2025-01-18 14:53 | XMS_ITS | Clinical Summary ---
Author Organization [facility] [address] [facility] Address [address] [place] [address] Phone Care Team Providers Care Loan Collector Name Role Phone Giovanny العراقي MD Primary Care Provider [phone] Allergies Active Allergy Reactions Criticality Noted Date Comments Penicillins Rash Low 11/10/2018 Surgical History Surgery Date Site/Laterality Comments COLONOSCOPY CATARACT EXTRACTION Social History Tobacco Use Types Packs/Day Years Used Date Smoking Tobacco: Never Smokeless Tobacco: Never Tobacco Cessation:Counseling Given: Not Answered Alcohol Use Standard Drinks/Week Comments Not Currently 0 (1 standard drink = 0.6 oz pur e alcohol) Interpersonal Safety Answer Date Record ed Physical Abuse Unrecognized value 04/21/2024 Verbal Abuse Unrecognized value 04/21/2024 Comments Unknown Sex and Gender Information Value Date Recorded Sex Assigned at Female 04/16/2024 11:21 AM EST Legal Sex Female 10:01 AM EST Gender Identity Female 04/16/2024 11:21 AM EST Sexual Orientation Straight 04/16/2024 11 :21 AM EST Obstetrics History Last Filed Vital Signs Vital Sign Reading Time Taken Comments Blood Pressure 125/78 04/21/2024 2:22 PM EST Pulse 74 04/21/2024 2:22 PM EST Temperature 36.2 C (97.2 F) 04/21/2024 2:04 PM EST Respiratory Rate 16 04/21/2024 2:22 PM EST Oxygen Saturation 98% 04/21/2024 2:22 PM EST Inhaled Oxygen Concentration - - Weight 71.7 kg (158 lb) 04/21/2024 1:34 PM EST Height 162.6 cm (5' 4 ) 04/21/2024 1:34 PM EST Body Mass Index 27.12 04/21/2024 1:34 PM EST Plan of Treatment Health Maintenance Due Date Last Done Comments Hepatitis B Vaccines (1 of 3 - 19+ 3-dose series) 12/25/1986 Cervical Cancer Screening: Pap Smear 12/25/1988 Pneumococcal Vaccine: 50+ Years (1 of 1 - PCV) 12/25/2017 Zoster Vaccines (1 of 2) 12/25/2017 HIV Screening 01/31/2024 Hepatitis C Screening 01/31/2024 Social Influencers of Health Screening 01/31/2024 Depression Screening 02/26/2024 COVID-19 Vaccine ( season) 2024 03/07/2021, 06/10/2020, 05/19/2020 Influenza Vaccine (#1) 2024 , 01/15/2023, 11/10/2021, Additional history exists Breast Cancer Screening 03/23/2026 03/23/2024 DTaP,Tdap,and Td Vaccines (2 - Td or Tdap) 12/31/2028 12/31/2018 Colorectal Cancer Screening: Colonoscopy 04/21/2034 04/21/2024, 01/27/2019 RSV Immunization Adult Patients (1 - 1-dose 75+ series) 12/25/2042 HIB Vaccines Aged Out No longer eligi ble based on patient's age to complete this topic HPV Vaccines Aged Out No longer eligi ble based on patient's age to complete this topic Hepatitis A Vaccines Aged Out No long er eligible based on patient's age to complete this topic IPV Vaccines Aged Out No longer eligi ble based on patient's age to complete this topic MMR Vaccines Aged Out No longer eligi ble based on patient's age to complete this topic Meningococcal ACWY Vaccine Aged Out N o longer eligible based on patient's age to complete this topic Meningococcal B Vaccine Aged Out No l onger eligible based on patient's age to complete this topic RSV Immunization Patients Under 20 months Aged Out No longer eligible based on patient's age to complete this topic Varicella Vaccines Aged Out No longer eligible based on patient's age to complete this topic Procedures Procedure Name Priority Date/Time Associated Diagnosis Comments COLONOSCOPY Routine 04/21/2024 2:01 PM EST Personal history of other colon polyps from Last 3 Months or Most Recently Relevant to Health Maintenance Results * COLONOSCOPY Anesthesia - MAC; [facility] ENDOSCOPY (04/21/2024 2:01 PM EST) Anatomical Region Laterality Modality Other 04/21/2024 1:51 PM EST Impressions 04/21/2024 2:03 PM EST - The examined portion of the ileum was normal. - Diverticulosis in the sigmoid colon. - Internal hemorrhoids. - The examination was otherwise normal. - No specimens collected. Recommendation: - Repeat colonoscopy in 7 years for surveillance. Narrative 04/21/2024 2:03 PM EST [facility] GI Patient Name: Machelle Rodriguez Procedure Date: 04/21/2024 1:51 PM Date of : 1965 Age: 58 Gender: Female Note Status: Finalized Attending MD: Monica Hernandes MD, Procedure Date No Time: 04/21/2024 Procedure: Colonoscopy Indications: High risk colon cancer surveillance: Personal history of non-advanced adenoma Providers: Monica Hernandes MD Referring MD: Giovanny العراقي MD Medicines: Propofol per Anesthesia Complications: No immediate complications. Estimated Blood Loss: Estimated blood loss: none. Procedure: Pre-Anesthesia Assessment: - ASA Grade Assessment: II - A patient with mild systemic disease. After I obtained informed consent, the scope was passed under direct vision. Throughout the procedure, the patient's blood pressure, pulse, and oxygen saturations were monitored continuously.The Colonoscope was introduced through the anus and advanced to the terminal ileum. The colonoscopy was performed without difficulty. The patient tolerated the procedure well. The quality of the bowel preparation was excellent. Findings: The perianal and digital rectal examinations were normal. The terminal ileum appeared normal. Multiple small-mouthed diverticula were found in the sigmoid colon. Internal hemorrhoids were found during retroflexion. The hemorrhoids were Grade I (internal hemorrhoids that do not prolapse). The exam was otherwise without abnormality. Procedure Code(s): --- Professional --- G0105, Colorectal cancer screening; colonoscopy on individual at high risk Diagnosis Code(s): --- Professional --- Z86.010, Personal history of colonic polyps CPT copyright 2020 [employer]. All rights reserved. The codes documented in this report are preliminary and upon tsa screener review may be revised to meet current compliance requirements. Monica Hernandes MD 04/21/2024 2:03:29 PM This report has been signed electronically.Monica Hernandes MD Number of Addenda: 0 Note Initiated On: 04/21/2024 1:51 PM Scope In: Scope Out: Endoscopy Department at [facility] - [address] [place] [id number] Procedure Note Monica Hernandes MD - 04/21/2024 [facility] GI Patient Name: Machelle Rodriguez Procedure Date: 04/21/2024 1:51 PM Date of : 1965 Age: 58 Gender: Female Note Status: Finalized Attending MD: Monica Hernandes MD, Procedure Date No Time: 04/21/2024 Procedure: Colonoscopy Indications: High risk colon cancer surveillance: Personalhistory of non-advanced adenoma Providers: Monica Hernandes MD Referring MD: Giovanny العراقي MD Medicines: Propofol per Anesthesia Complications: No immediate complications. Estimated Blood Loss: Estimated blood loss: none. Procedure: Pre-Anesthesia Assessment: - ASA Grade Assessment: II - A patient with mild systemic disease. After I obtained informed consent, the scope was passed under direct vision. Throughout theprocedure, the patient's blood pressure, pulse, and oxygen saturations were monitored continuously.The Colonoscope was introduced through the anus and advanced to the terminal ileum. The colonoscopy was performed without difficulty. The patient tolerated the procedure well. The quality of the bowel preparation was excellent. Findings: The perianal and digital rectal examinations were normal. The terminal ileum appeared normal. Multiple small-mouthed diverticula were found inthe sigmoid colon. Internal hemorrhoids were found duringretroflexion. The hemorrhoids were Grade I (internal hemorrhoids that do not prolapse). The exam was otherwise without abnormality. Procedure Code(s): --- Professional --- G0105, Colorectal cancer screening; colonoscopy on individual at high risk Diagnosis Code(s): --- Professional --- Z86.010, Personal history of colonic polyps CPT copyright 2020 [employer]. All rights reserved. The codes documented in this report are preliminary and upon tsa screener reviewmay be revised to meet current compliance requirements. Monica Hernandes MD 04/21/2024 2:03:29 PM This report has been signed electronically.Monica Hernandes MD Number of Addenda: 0 Note Initiated On: 04/21/2024 1:51 PM Scope In: Scope Out: Endoscopy Department at [facility] - [address] [place] [id number] IMPRESSION: - The examined portion of the ileum was normal. - Diverticulosis in the sigmoid colon. - Internal hemorrhoids. - The examination was otherwise normal. - No specimens collected. Recommendation: - Repeat colonoscopy in 7 years for surveillance. Monica Hernandes MD GI~PROCEDURE ORDERABLES Final Result from Last 3 Months or Most Recently Relevant to Health Maintenance Insurance [address] [address] [address] ([facility]) Care Teams Loan Collector Relationship Specialty Start Date End Date Giovanny العراقي MD [address] PCP - General Internal Medicine 01/31/24
--- OUTSIDE RECORDS SUMMARY | 2025-01-18 14:53 | XMS_ITS | Encounter Summary ---
Author Organization [facility] Address [address] [facility] [address] [place] [address] Phone Care Team Providers Care Leaflet Or Newspaper Deliverer Name Role Phone Ward Álvarez MD Unavailable Galilea Ellis FIELD CLINICAL ENGINEER Unavailable [phone] Mich العراقي MD Unavailable [phone] Mich العراقي MD Primary Care Provider Encounter Details Date Type Department Care Team (Late st Contact Info) Description 06/03/2018 Ancillary Orders [facility] [address] [place] [address] [place] [address] Galilea Ellis, FIELD CLINICAL ENGINEER [address] [place] [address] Breast screening Social History Tobacco Use Types [...] MAMMOGRAM SCREENING WITH TOMOSYNTHESIS WITH CAD (BILATERAL) (06/09/2018 12:55 PM EDT) Anatomical Region Laterality Modality Breast Left, Breast Right, Breast Bilateral Bila teral Mammography 06/09/2018 1:46 PM EDT Impressions 06/09/2018 1:47 PM EDT Stable appearance relative to prior imaging. No findings suggestive of malignancy are seen. BI-RADS CATEGORY: 2 - Benign finding. DENSITY: There are scattered fibroglandular densities. POS - [id number] Narrative 06/09/2018 1:47 PM EDT Full-field digital mammography is obtained with computer-aided detection. Comparison with prior imaging from 05/03/2017 is made with older imaging dating back as far as 02/20/2012 also reviewed. There is scattered fibroglandular density evident in the breasts. In addition to 2-D C view imaging, tomosynthesis images are obtained in two projections of each breast. There are minor punctate right breast calcifications evident which are unchanged.. No dominant soft tissue mass of concern, suspicious cluster of calcifications, significant interval skin changes, or architectural distortion is identified. Procedure Note Brennan Mckeon MD - 06/09/2018 Full-field digital mammography is obtained with computer-aided detection.Comparison with prior imaging from 05/03/2017 is made with older imagingdating back as far as 02/20/2012 also reviewed. There is scattered fibroglandular density evident in the breasts. Inaddition to 2-D C view imaging, tomosynthesis images are obtained in twoprojections of each breast. There are minor punctate right breast calcifications evident which areunchanged.. No dominant soft tissue mass of concern, suspicious clusterof calcifications, significant interval skin changes, or architecturaldistortion is identified. IMPRESSION: Stable appearance relative to prior imaging. No findings suggestive ofmalignancy are seen. BI-RADS CATEGORY: 2 - Benign finding. DENSITY: There are scattered fibroglandular densities. POS - [id number] us Galilea Ellis FIELD CLINICAL ENGINEER IMG MG EXAMS Final Result documented in this encounter Visit Diagnoses Diagnosis Breast screening Breast screening, unspecified Breast screening Breast screening, unspecified documented in this encounter Care Teams Leaflet Or Newspaper Deliverer Relationship Specialty Start Date End Date Mich العراقي MD [address] [place] [address] Dr MARI [address] [place] [address] PCP - General 02/28/17 Ward Álvarez MD [address] [place] [address] [email or web address] Historical LMR Provider 12/15/16 03/04/21 Galilea Ellis NP [address] [place] [phone] [email or web address] Historical LMR Provider 12/15/16 Mich العراقي MD [address] [place] [address] [place] [address] Historical LMR Provider 12/15/16 2 documented as of this encounter Additional Source Comments The information contained in this document represents components of the legal health record. It is not the complete legal health record.[facility]
--- OUTSIDE RECORDS SUMMARY | 2025-01-18 14:53 | XMS_ITS | Encounter Summary ---
Author Organization [facility] Address [address] [facility] [address] [place] [address] Phone Care Team Providers Care Area Plant Manager Name Role Phone Ward Álvarez MD Unavailable Galilea Ellis PLUMBING INSTRUCTOR Unavailable [phone] Mich العراقي MD Unavailable [phone] Mich العراقي MD Primary Care Provider Encounter Details Date Type Department Care Team (Late st Contact Info) Description 10/27/2019 Procedure Pass [address] [id number] Social History Tobacco Use Types Packs/Day Years [...] on filedocumented in this encounter Care Teams Area Plant Manager Relationship Specialty Start Date End Date Mich العراقي MD [address] [place] [address] [place] [address] PCP - General 02/28/17 Ward Álvarez MD [address] [place] [address] [address] [place] [address] [email or web address] Historical LMR Provider 12/15/16 03/04/21 Galilea Ellis NP [address] [place] [address] [email or web address] Historical LMR Provider 12/15/16 Mich العراقي MD [address] [place] [address] Dr [facility] [place] [address] Historical LMR Provider 12/15/16 2 documented as of this encounter Additional Source Comments The information contained in this document represents components of the legal health record. It is not the complete legal health record.[facility]
--- OUTSIDE RECORDS SUMMARY | 2025-01-18 14:54 | XMS_ITS | Encounter Summary ---
Author Organization [facility] Address [address] [facility] [address] [place] [address] Phone Care Team Providers Care Termite Inspector Name Role Phone Ward Álvarez MD Unavailable Galilea Ellis SERVICE LEARNING COORDINATOR Unavailable [phone] Mich العراقي MD Unavailable [phone] Mich العراقي MD Primary Care Provider Encounter Details Date Type Department Care Team (Late st Contact Info) Description 08/24/2019 Ancillary Orders [facility]rev[facility] [address] [place] [address] [place] [address] Galilea Ellis, SERVICE LEARNING COORDINATOR [address] [place] [address] [email or web address] Social History Tobacco Use Types Packs/Day Years [...] on filedocumented in this encounter Care Teams Termite Inspector Relationship Specialty Start Date End Date Mich العراقي MD [address] [place] [address] [place] [address] PCP - General 02/28/17 Ward Álvarez MD [address] [place] [address] [address] [place] [address] [email or web address] Historical LMR Provider 12/15/16 03/04/21 Galilea Ellis NP [address] [place] [address] [email or web address] Historical LMR Provider 12/15/16 Mich العراقي MD [address] [place] [address] [place] [address] Historical LMR Provider 12/15/16 2 documented as of this encounter Additional Source Comments The information contained in this document represents components of the legal health record. It is not the complete legal health record.[facility]
--- OUTSIDE RECORDS SUMMARY | 2025-01-18 14:54 | XMS_ITS | Encounter Summary ---
Author Organization [facility] Address [address] [facility] [address] [place] [address] Phone Care Team Providers Care Sewer Contractor Name Role Phone Ward Álvarez MD Unavailable Galilea Ellis GOLF CLUB HEAD INSPECTOR AND ADJUSTER Unavailable [phone] Mich العراقي MD Unavailable [phone] Mich العراقي MD Primary Care Provider Encounter Details Date Type Department Care Team (Late st Contact Info) Description 08/24/2019 Ancillary Orders Virtual Department [address] [place] [address] Galilea Ellis, GOLF CLUB HEAD INSPECTOR AND ADJUSTER [address] [place] [address] [email or web address] Breast screening Social History Tobacco Use Types [...] documented as of this encounter Results * (ABNORMAL) BI MAMMOGRAM SCREENING WITH TOMOSYNTHESIS WITH CAD (BILATERAL) (10/21/2019 2:27 PM EDT) Anatomical Region Laterality Modality Breast Left, Breast Right, Breast Bilateral Bila teral Mammography 10/21/2019 6:00 PM EDT Impressions 10/21/2019 6:12 PM EDT Recommend additional imaging for 5 m mass in the upper outer right breast which could prove to represent a cyst. No other findings suspicious for malignancy. The radiology department will attempt to call patient for the additional imaging. BI-RADS CATEGORY 0 - INCOMPLETE NEED ADDITIONAL IMAGING DENSITY: There are scattered fibroglandular densities. LEFT RECOMMENDATION DUE DATE: Annual Mammography Screening RIGHT RECOMMENDATION DUE DATE: 1 Month Additional Imaging Recall imagin degrees ML view right breast, right breast ultrasound. Narrative 10/21/2019 6:12 PM EDT Bilateral mammography is performed in conjunction with computed aided detection. 3-D tomography along with 2-D C view imaging was also performed. Comparison made to previous dated as far back as 02/20/2013 and as recent as 06/09/2018. Developing 5 mm mass in the mid one third of the upper outer right breast. This appears fairly well-circumscribed. No other suspicious masses, areas of architectural distortion or suspicious microcalcifications. Galilea Ellis NP IMG MG EXAMS Final Result documented in this encounter Visit Diagnoses Diagnosis Breast screening Breast screening, unspecified Breast screening Breast screening, unspecified documented in this encounter Care Teams Sewer Contractor Relationship Specialty Start Date End Date Mich العراقي MD [address] [place] [address] Dr MARI [address] [place] [address] PCP - General 02/28/17 Ward Álvarez MD [address] [place] [address], [address] [place] [address] Historical LMR Provider 12/15/16 03/04/21 Galilea Ellis NP [address] [place] [address] [email or web address] Historical LMR Provider 12/15/16 Mich العراقي MD [address] [place] [address] [place] [address] Historical LMR Provider 12/15/16 2 documented as of this encounter Additional Source Comments The information contained in this document represents components of the legal health record. It is not the complete legal health record.[facility]
--- OUTSIDE RECORDS SUMMARY | 2025-01-18 14:54 | XMS_ITS | Encounter Summary ---
Author Organization [facility] Address [address] [facility] [address] [place] [address] Phone Care Team Providers Care Office Services Specialist Name Role Phone Rhonda, Galilea Ranjith DEXIGRAPH OPERATOR Unavailable [phone] Mich العراقي MD Primary Care Provider Encounter Details Date Type Department Care Team (Late st Contact Info) Description 08/04/2022 Procedure Pass [facility] [address] [place] [address] Social History Tobacco Use Types Packs/Day Years [...] on filedocumented in this encounter Care Teams Office Services Specialist Relationship Specialty Start Date End Date Mich العراقي MD [address] [place] [address] [place] [address] PCP - General 02/28/17 Galilea Ellis NP [address] [place] [phone] [email or web address] Historical LMR Provider 12/15/16 documented as of this encounter Additional Source Comments The information contained in this document represents components of the legal health record. It is not the complete legal health record.[facility]
--- OUTSIDE RECORDS SUMMARY | 2025-01-18 14:54 | XMS_ITS | Encounter Summary ---
Author Organization [facility] Address [address] [place] [address] Phone Care Team Providers Care Crm Manager Name Role Phone Ward Álvarez MD Unavailable Galilea Ellis LEAD PHARMACY TECHNICIAN Unavailable [phone] Mich العراقي MD Unavailable [phone] Mich العراقي MD Primary Care Provider Encounter Details Date Type Department Care Team (Late st Contact Info) Description 10/22/2019 Ancillary Orders [facility] [address] [place] [address] [place] [address] Galilea Ellis, LEAD PHARMACY TECHNICIAN [address] [place] [address] [email or web address] Abnormal mammogram Social History Tobacco Use Types Packs/Day Years [...] as of this encounter Results * BI US BREAST LIMITED (RIGHT) (11/13/2019 2:32 PM EDT) Anatomical Region Laterality Modality Breast Right, Breast Bilateral Right U ltrasound 11/13/2019 2:35 PM EDT Impressions 11/13/2019 2:37 PM EDT Simple cyst in the 10:00 position of the right breast on ultrasound correlating with the mammographic finding. No findings suspicious for malignancy. Bilateral annual mammographic screening recommended. The results were given to the patient by the technologist at the time of the examination. BI-RADS CATEGORY 2 - BENIGN DENSITY: There are scattered fibroglandular densities. POS - [id number] Narrative 11/13/2019 2:37 PM EDT EXAM: Unilateral full field digital mammography was obtained with computer-aided detection. 2-D and 2-D C view imaging obtained as well as tomosynthesis images in two projections of the breast was also obtained. COMPARISON: Persisting oval well-circumscribed sub-centimeter mass in the upper outer right breast on the additional mammographic image in the mid-anterior aspect of the breast. Directed scanning of the upper outer right breast performed. This demonstrates an anechoic cyst in the 10:00 position approximately 4 cm deep to the nipple which measures 6 mm x 5 mm x 3 mm. No other masses are demonstrated. Procedure Note Thomas Reeves MD - 11/13/2019 EXAM: Unilateral full field digital mammography was obtained withcomputer-aided detection. 2-D and 2-D C view imaging obtained as well astomosynthesis images in two projections of the breast was also obtained. COMPARISON: Persisting oval well-circumscribed sub-centimeter mass in the upper outerright breast on the additional mammographic image in the mid-anterioraspect of the breast. Directed scanning of the upper outer right breast performed. Thisdemonstrates an anechoic cyst in the 10:00 position approximately 4 cmdeep to the nipple which measures 6 mm x 5 mm x 3 mm. No other masses aredemonstrated. IMPRESSION: Simple cyst in the 10:00 position of the right breast on ultrasoundcorrelating with the mammographic finding. No findings suspicious formalignancy. Bilateral annual mammographic screening recommended. The results were given to the patient by the technologist at the time ofthe examination. BI-RADS CATEGORY 2 - BENIGN DENSITY: There are scattered fibroglandular densities. POS - [id number] us Galilea Ellis NP IMG US BREAST Final Result * BI MAMMOGRAM DIAGNOSTIC WITH TOMOSYNTHESIS NO CAD (RIGHT) (11/13/2019 2:09 PM EDT) Anatomical Region Laterality Modality Breast Right, Breast Bilateral Right M ammography 11/13/2019 2:35 PM EDT Impressions 11/13/2019 2:37 PM EDT Simple cyst in the 10:00 position of the right breast on ultrasound correlating with the mammographic finding. No findings suspicious for malignancy. Bilateral annual mammographic screening recommended. The results were given to the patient by the technologist at the time of the examination. BI-RADS CATEGORY 2 - BENIGN DENSITY: There are scattered fibroglandular densities. POS - [id number] Narrative 11/13/2019 2:37 PM EDT EXAM: Unilateral full field digital mammography was obtained with computer-aided detection. 2-D and 2-D C view imaging obtained as well as tomosynthesis images in two projections of the breast was also obtained. COMPARISON: Persisting oval well-circumscribed sub-centimeter mass in the upper outer right breast on the additional mammographic image in the mid-anterior aspect of the breast. Directed scanning of the upper outer right breast performed. This demonstrates an anechoic cyst in the 10:00 position approximately 4 cm deep to the nipple which measures 6 mm x 5 mm x 3 mm. No other masses are demonstrated. Galilea Ellis NP IMG MG EXAMS Final Result documented in this encounter Visit Diagnoses Diagnosis Abnormal mammogram Abnormal mammogram, unspecified Abnormal mammogram Abnormal mammogram, unspecified Abnormal mammogram Abnormal mammogram, unspecified documented in this encounter Care Teams Crm Manager Relationship Specialty Start Date End Date Mich العراقي MD [address] [place] [address] [place] [address] PCP - General 02/28/17 Ward Álvarez MD [address] [place] [address] [address] [place] [address] [email or web address] Historical LMR Provider 12/15/16 03/04/21 Galilea Ellis NP [address] [place] [phone] [email or web address] Historical LMR Provider 12/15/16 Mich العراقي MD [address] [place] [address] [place] [address] Historical LMR Provider 12/15/16 2 documented as of this encounter Additional Source Comments The information contained in this document represents components of the legal health record. It is not the complete legal health record.[facility]
--- OUTSIDE RECORDS SUMMARY | 2025-01-18 14:54 | XMS_ITS | Encounter Summary ---
Author Organization [facility] Address [address] [place] [address] Phone Care Team Providers Care Casting Chipper Name Role Phone Galilea Ellis FITTING ROOM INSPECTOR Unavailable Mich العراقي MD Primary Care Provider Encounter Details Date Type Department Care Team (Late st Contact Info) Description 08/24/2021 Procedure Pass [facility], [address] [address] Social History Tobacco Use Types Packs/Day Years [...] on filedocumented in this encounter Care Teams Casting Chipper Relationship Specialty Start Date End Date Mich العراقي MD [address] [place] [address] [place] [address] PCP - General 02/28/17 Galilea Ellis NP [address] [place] [address] [email or web address] Historical LMR Provider 12/15/16 documented as of this encounter Additional Source Comments The information contained in this document represents components of the legal health record. It is not the complete legal health record.[facility]
--- OUTSIDE RECORDS SUMMARY | 2025-01-18 14:55 | XMS_ITS ---
Author Name [facility] Organization Unknown Care Team Organization Name Specialty Phone Email Start Date End [facility] te [facility] [employer] [facility] 01/10/2024
--- OUTSIDE RECORDS SUMMARY | 2025-01-18 14:55 | XMS_ITS | Encounter Summary ---
Author Organization [facility] Address [address] [place] [address] Phone Care Team Providers Care Outsole Skiver Name Role Phone Galilea Ellis OPERATOR Unavailable [phone] Mich العراقي MD Primary Care Provider Encounter Details Date Type Department Care Team (Late st Contact Info) Description 11/06/2023 Transcribe Orders Virtual Department [address] [place] [address] Mich العراقي MD [address] [place] [address] [place] [address] Breast screening (Primary Dx) Social History Tobacco Use Types Packs/Day Years [...] MD IMG MG EXAMS Final R esult documented in this encounter Visit Diagnoses Diagnosis Breast screening- Primary Breast screening, unspecified Breast screening Breast screening, unspecified documented in this encounter Care Teams Outsole Skiver Relationship Specialty Start Date End Date Mich العراقي MD [address] [place] [address] [place] [address] PCP - General 02/28/17 Galilea Ellis NP [address] [place] [phone] [email or web address] Historical LMR Provider 12/15/16 documented as of this encounter Additional Source Comments The information contained in this document represents components of the legal health record. It is not the complete legal health record.[facility]
[2025-01-18 15:29] LABS: Alanine Aminotransferase 25 U/L (0-31); Albumin Level 4.6 g/dL (3.5-5.0); Alkaline Phosphatase 83 U/L (39-117); Anion Gap 12 (12-20); Aspartate Amino Transferase 28 U/L (5-31); Blood Urea Nitrogen 15 mg/dL (9-16); Calcium 9.0 mg/dL (8.4-10.2); Carbon Dioxide 28 mmol/L (22-29); Chloride 106 mmol/L (96-108); Cholesterol 193 mg/dL (<200); Estimated Glomerular Filt Rate > 60; HDL Cholesterol 65 mg/dL (>40); Potassium 4.0 mmol/L (3.3-5.1); Sodium 142 mmol/L (135-145); Total Protein 7.2 g/dL (6.5-8.0); Triglycerides 121 mg/dL (<150)
== END 2025-01-18 11:20 | disposition home or self-care (01) ==
LOC: HO.LNP 11:19
PROVIDERS: Visit Provider Internal Medicine
DX: Z00.00 Encounter for general adult medical examination without abnormal findings (principal); Z13.6 Encounter for screening for cardiovascular disorders; R73.01 Impaired fasting glucose; D64.9 Anemia, unspecified
CPT/HCPCS: 80053; 80061; 81001; 85025